=== PATIENT | male | born 1960 | race Caucasian/White ===

== ENCOUNTER 2021-12-17 10:46 | Outpatient (CLI) | payer BC | END 2021-12-17 10:47 | disposition home or self-care (01) | LOC: CT 10:46 | PROVIDERS: ATTEND Neurological Surgery | DX: G97.1 Other reaction to spinal and lumbar puncture (principal) | CPT/HCPCS: 70450 ==

== ENCOUNTER 2021-12-17 14:16 | Day surgery (SDC) | payer BC | END 2021-12-17 15:50 | disposition home or self-care (01) | LOC: SDC 14:16 | PROVIDERS: ATTEND Neurological Surgery | PROC: 3E0S3GC Introduction of Other Therapeutic Substance into Epidural Space, Percutaneous Approach (ICD-10-PCS; principal; 2021-12-17) | DX: G97.1 Other reaction to spinal and lumbar puncture (principal); Y84.4 Aspiration of fluid as the cause of abnormal reaction of the patient, or of later complication, without mention of misadventure at the time of the procedure | CPT/HCPCS: 62272 ==